=== PATIENT | male | born 1955 | race Caucasian/White ===

== ENCOUNTER 2019-11-22 11:06 | Emergency (ER) | payer OTHER ==
[~2019-11-22] VITALS: Ht 160 cm; Wt 114.3 kg
[~2019-11-22 11:06] MED LIST: ASPIR 8181 MG PO; ASPIR-LOW81 M1 PO; BAY PO; DIA5; DIA5 PO; ENALAPRIL MALEA20 MG PO; FLE10 PO; FLEXERIL10 MG PO; GLU500 PO; GLU850 PO; GLYBURIDE2.5 MG PO; HYD25 PO; HYDROCHLOROTHIA25 MG PO; ISORDIL TITRADOS5 MG PO; LOP50 PO; LOR PO; METFORMIN HCL850 MG PO; METOPROLOL SUC100 M2 PO; NEU100 PO; NEURONTIN100 MG PO; NORCO1 TA2 PO; OMEPRAZOLE40 M1 PO; PENTOXIL400 MG PO; PRILOSEC20 MG PO; SIMVASTATIN20 M1; ULTRAM50 MG PO; V10 PO; VASOTEC20 MG PO; ZES20 PO; ZESTRIL20 MG PO; ZOC20 PO
[2019-11-22 11:24] VITALS: Ht 160 cm; Wt 114.3 kg
[2019-11-22 12:21] LABS: BASOPHIL % 0.3 % (0-2); PLATELET COUNT 134 x10^3mcL (130-400); RED CELL DISTRIBUTION WIDTH 14.3 % (11.5-14.5)
[2019-11-22 12:53] LABS: CALCIUM 8.6 mg/dL (8.5-10.1); CARBON DIOXIDE 26.8 mmol/L (21-32); CHLORIDE SERUM 103 mmol/L (98-107); CREATININE SERUM 0.9 mg/dL (0.7-1.3); GFR1 > 60 mL/min; GLUCOSE SERUM 111 mg/dL (74-106); POTASSIUM SERUM 3.9 mmol/L (3.5-5.1); SODIUM SERUM 140 mmol/L (136-145)
[2019-11-22 12:57] LABS: ALBUMIN 3.6 g/dL (3.4-5.0); ALKALINE PHOSPHATASE 87 U/L (46-116); ALT/SGPT 39 U/L (16-63); AST/SGOT 30 U/L (15-37); BILIRUBIN TOTAL 0.4 mg/dL (0.20-1.00); HDL CHOLESTEROL 49 mg/dL (40-60); PHOSPHOROUS 3.5 mg/dL (2.5-4.9); TOTAL PROTEIN, SERUM 7.6 g/dL (6.4-8.2); URIC ACID 6.2 mg/dL (3.5-7.2)
[2019-11-22 12:58] LABS: CHOLESTEROL 112 mg/dL (<200)
[2019-11-22 13:30] VITALS: BP 157/80
== END 2019-11-22 13:30 | disposition home or self-care (01) ==
LOC: ED 11:06
PROVIDERS: Emergency Medicine
DX: I16.0 Hypertensive urgency (principal); I10 Essential (primary) hypertension; E11.9 Type 2 diabetes mellitus without complications; E66.01 Morbid (severe) obesity due to excess calories
CPT/HCPCS: 36415; Q0092